=== PATIENT | male | born 1975 | race Caucasian/White ===

== ENCOUNTER → 2018-11-11 18:26 | Outpatient (CLI) | payer BC ==
[~2018-11-11 18:26] MED LIST: ALLOPURINOL TAB 300 PO; ALTACE10 MG PO; CRILL OIL PO; JANUMET XR 1001 EACH PO; KRILL OIL 1,001 EAC1 PO; LEVOFLOXACIN500 MG PO; RANITIDINE TAB 150 PO; SYNTHROID50 MCG PO
[2018-11-18 11:39] VITALS: BMI 44.4
== END | disposition home or self-care (01) ==
LOC: D.LABREF 18:26
PROVIDERS: ATTEND Podiatrist
DX: M86.9 Osteomyelitis, unspecified (principal)

== ENCOUNTER 2018-11-18 09:24 | Day surgery (SDC) | payer BC ==
[~2018-11-18] VITALS: Ht 175.3 cm; Wt 136.1 kg
[~2018-11-18 09:24] MED LIST changes: -KRILL OIL 1,001 EAC1 PO
[2018-11-18 10:07] LABS: ANION GAP 14.8 mmol/L (8-16); CALCIUM 9.3 mg/dL (8.5-10.1); CARBON DIOXIDE 25.7 mmol/L (21.0-32.0); CREATININE - SERUM 1.4 mg/dL (0.6-1.3); POTASSIUM - SERUM 4.5 mmol/L (3.5-5.1)
[2018-11-18 10:13] LABS: HEMATOCRIT 44.1 % (42.0-54.0); HEMOGLOBIN 15.1 g/dL (13.5-17.5); MCH 30.9 pg (26.0-34.0); MCHC 34.2 g/dL (31.0-37.0); MCV 90.2 fL (80.0-100.0); MEAN PLATELET VOLUME 10.1 fL (7.4-10.4); RBC 4.89 10x6/uL (4.20-6.10); RDW 13.8 % (11.5-14.5); WBC 13.4 10x3/uL (4.8-10.8)
[2018-11-18] MEDS ORDERED: KRILL OIL 1,001 EAC1 PO (11:32)
[2018-11-18 11:39] VITALS: Ht 175.3 cm; Wt 136.1 kg
--- NOTE | 2018-11-18 16:27 | NUR ---
1416 [facility] DC'D. 1525 IV DC'D. CATHETER INTACT. NO BLEEDING AT SITE. BANDAID APPLIED.
== END 2018-11-18 15:50 | disposition home or self-care (01) ==
LOC: D.OPS 09:24
PROVIDERS: Anesthesiology; ATTEND Podiatrist Foot & Ankle Surgery
DX: L03.031 Cellulitis of right toe (principal); M86.8X7 Other osteomyelitis, ankle and foot; Z01.812 Encounter for preprocedural laboratory examination

== ENCOUNTER → 2019-01-25 11:33 | Outpatient (CLI) | payer BC ==
[2018-11-18 11:39] VITALS: BMI 44.4
[~2019-01-25 11:33] MED LIST changes: +KRILL OIL 1,001 EAC1 PO
== END | disposition home or self-care (01) ==
LOC: D.LABREF 11:33
PROVIDERS: ATTEND Podiatrist Foot & Ankle Surgery
DX: L03.90 Cellulitis, unspecified (principal)

== ENCOUNTER → 2019-02-24 12:27 | Outpatient (CLI) | payer BC ==
[2018-11-18 11:39] VITALS: BMI 44.4
== END | disposition home or self-care (01) ==
LOC: D.LABREF 12:27
PROVIDERS: ATTEND Podiatrist
DX: M86.171 Other acute osteomyelitis, right ankle and foot (principal)

== ENCOUNTER 2019-06-28 09:30 | Day surgery (SDC) | payer BC ==
[~2019-06-28] VITALS: Ht 175.3 cm; Wt 136.1 kg
[2019-06-28 09:51] LABS: HEMATOCRIT 40.6 % (42.0-54.0); HEMOGLOBIN 13.3 g/dL (13.5-17.5); MCH 30.2 pg (26.0-34.0); MCHC 32.8 g/dL (31.0-37.0); MCV 92.1 fL (80.0-100.0); MEAN PLATELET VOLUME 8.8 fL (7.4-10.4); RBC 4.41 10x6/uL (4.20-6.10); RDW 13.6 % (11.5-14.5); WBC 10.6 10x3/uL (4.8-10.8)
[2019-06-28 10:01] LABS: CALC OSMOLALITY 278 mosm/kg (275-300); CARBON DIOXIDE 29.2 mmol/L (21.0-32.0); CHLORIDE - SERUM 105 mmol/L (98-107); CREATININE - SERUM 1.1 mg/dL (0.6-1.3); POTASSIUM - SERUM 4.4 mmol/L (3.5-5.1); SODIUM 139 mmol/L (136-145); UREA NITROGEN 15 mg/dL (7-18); eGFR NON AFRICAN AMERICAN 77 mL/min (90-120)
[2019-06-28 10:02] LABS: GLUCOSE 102 mg/dL (74-106)
[2019-06-28] MEDS ORDERED: GLYBURIDE5 M1 PO (10:59)
[2019-06-28 11:07] VITALS: BP 128/70; Ht 175.3 cm; Wt 136.1 kg
[2019-06-28] MEDS ORDERED: HYDROCODON-ACE1 EAC7 PO (15:42)
== END 2019-06-28 17:20 | disposition home or self-care (01) ==
LOC: D.OPS 09:30 → D.PAN 13:00 → D.OPS 17:20
PROVIDERS: Anesthesiology; ATTEND Podiatrist Foot & Ankle Surgery
DX: E11.621 Type 2 diabetes mellitus with foot ulcer (principal); L97.529 Non-pressure chronic ulcer of other part of left foot with unspecified severity; I10 Essential (primary) hypertension; M20.42 Other hammer toe(s) (acquired), left foot

== ENCOUNTER 2019-08-02 09:29 | Day surgery (SDC) | payer BC ==
[~2019-08-02] VITALS: Ht 175.3 cm; Wt 136.1 kg
[~2019-08-02 09:29] MED LIST changes: +GLYBURIDE5 M1 PO; +HYDROCODON-ACE1 EAC7 PO; +VITAMIN D31000 UNI2 PO
[2019-08-02 10:20] LABS: ANION GAP 10.9 mmol/L (8-16); CALCIUM 9.1 mg/dL (8.5-10.1); CARBON DIOXIDE 29.8 mmol/L (21.0-32.0); CREATININE - SERUM 1.4 mg/dL (0.6-1.3); POTASSIUM - SERUM 4.7 mmol/L (3.5-5.1)
[2019-08-02 10:25] LABS: HEMATOCRIT 43.4 % (42.0-54.0); HEMOGLOBIN 14.3 g/dL (13.5-17.5); MCH 29.7 pg (26.0-34.0); MCHC 32.9 g/dL (31.0-37.0); MEAN PLATELET VOLUME 9.6 fL (7.4-10.4); RBC 4.82 10x6/uL (4.20-6.10); RDW 14.2 % (11.5-14.5); WBC 10.2 10x3/uL (4.8-10.8)
[2019-08-02] MEDS ORDERED: LEVAQUIN750 MG PO (10:30)
[2019-08-02 10:32] VITALS: BP 114/73; Ht 175.3 cm; Wt 136.1 kg
--- NOTE | 2019-08-02 15:02 | NUR ---
DC INSTRUCTIONS GIVEN TO PT/SPOUSE, STATE UNDERSTANDING. DC'D IV CATH FULLY INTACT.
--- NOTE | 2019-08-02 15:07 | NUR ---
PT LEFT UNIT VIA WC AT 1510
== END 2019-08-02 15:10 | disposition home or self-care (01) ==
LOC: D.OPS 09:29 → D.PAN 08-03 13:00 → D.OPS 08-03 13:00
PROVIDERS: Anesthesiology; ATTEND Podiatrist Foot & Ankle Surgery
DX: S92.352A Displaced fracture of fifth metatarsal bone, left foot, initial encounter for closed fracture (principal); X58.XXXA Exposure to other specified factors, initial encounter; E11.9 Type 2 diabetes mellitus without complications

== ENCOUNTER → 2020-09-17 18:21 | Outpatient (CLI) | payer BC ==
[2019-09-01 07:15] VITALS: BMI 45.1
[~2020-09-17 18:21] MED LIST changes: +LEVAQUIN750 MG PO
== END | disposition home or self-care (01) ==
LOC: D.LABREF 18:21
PROVIDERS: ATTEND Podiatrist Foot & Ankle Surgery
DX: L97.522 Non-pressure chronic ulcer of other part of left foot with fat layer exposed (principal)